=== PATIENT | female | born 1955 | race Caucasian/White ===

== ENCOUNTER → 2023-09-10 08:02 | Outpatient (REF) | payer OTHER, SELFPAY | LOC: PAVMRI 08:02 | PROVIDERS: ATTENDING PHYSICIAN Internal Medicine Cardiovascular Disease; FAMILY PHYSICIAN Family Medicine | DX: R93.1 Abnormal findings on diagnostic imaging of heart and coronary circulation (principal); R00.2 Palpitations; R42 Dizziness and giddiness; Z86.79 Personal history of other diseases of the circulatory system; R03.0 Elevated blood-pressure reading, without diagnosis of hypertension; Z82.49 Family history of ischemic heart disease and other diseases of the circulatory system; N18.9 Chronic kidney disease, unspecified; R94.31 Abnormal electrocardiogram [ECG] [EKG] | CPT/HCPCS: 75561; 75565; A9585 ==